=== PATIENT | female | born 1995 | race Caucasian/White ===

== ENCOUNTER → 2020-08-20 | Outpatient (CLI) | payer BC ==
--- NOTE | 2020-08-20 11:06 | REP ---
INDICATION: CRUSHING INJURY. Bitten by a pit bull. COMPARISON: None. TECHNIQUE: Four views of the left hand are provided. FINDINGS: Four views of the left hand demonstrate normal bones, joints, and soft tissues. No fracture or subluxation is seen. No opaque foreign body noted. IMPRESSION: Negative left hand series. <Electronically signed by Geoff Major > 08/20/20 1457
== END ==
LOC: M WUC 09:53
PROVIDERS: ATTEND Physician Assistant
DX: S67.22XA Crushing injury of left hand, initial encounter (principal)